=== PATIENT | male | born 1970 | race Caucasian/White ===

== ENCOUNTER 2021-09-23 18:13 | Emergency (ER) | payer OTHER, MEDICAID, SELFPAY ==
--- NOTE | ~2021-09-23 | XR_ITS ---
EXAMINATION: XR chest 1V portable 09/23/2021 18:36 INDICATION: Cough and fever PROCEDURE: AP portable chest COMPARISON: 08/26/2005 FINDINGS: The lungs are clear. The cardiomediastinal silhouette is within normal limits. There are no pleural effusions. There is no pneumothorax suspected. IMPRESSION: 1: NO ACUTE CARDIOPULMONARY DISEASE. Reviewed, dictated and finalized at location A. D [facility]NER
[2021-09-23 18:15] VITALS: BP 133/100; PULSE 89; RESP 18; TEMP 36.9; O2SAT 98
[2021-09-23 18:26] VITALS: BP 126/76; PULSE 91; RESP 18; O2SAT 98
--- NOTE | 2021-09-23 18:29 | ED.URI ---
HPI - URI/Sore Throat General Chief Complaint: Upper Respiratory Infection Stated Complaint: sinus infection Time Seen by Provider: 09/23/21 18:21 Source: patient Mode of arrival: ambulatory Limitations: no limitations History of Present Illness HPI Narrative: This is a 51 year old male that presents to the ER for cold symptoms present over the last couple of weeks. Reports cough, congestion, sinus pain and pressure. Reports low grade fevers. Denies shortness of breath. Related Data Allergies Allergy/AdvReac Type Severity Reaction Status Date / Time No Known Allergies Allergy Mild Verified 06/05/20 12:27 Review of Systems Review of Systems: CONSTITUTIONAL: Denies fever ENT: Reports congestion, sore throat RESPIRATORY: Reports cough. Denies dyspnea. All systems reviewed & are unremarkable except as noted in HPI and below PMFSH Surgical History Surgical History H/O: vasectomy Family History Family History Mother Healthy adult Social History Social History Smoking status: Former smoker Tobacco type: smokeless tobacco Smoking end date: 10/31/99 Alcohol intake: current Substance use: current Substance use type: marijuana Exam Narrative: GENERAL: Well-appearing, well-nourished, and in no acute distress. HEAD: Normocephalic, atraumatic. EYES: EOMI. ENT: Turbinates swollen and pale. Mucous membranes moist. Oropharynx without tonsillar hypertrophy exudate or other lesions. Bilateral TMs pearly aggarwal non-bulging. Frontal sinus tenderness bilaterally NECK: Supple. No adenopathy or masses. CHEST: Clear to auscultation. No respiratory distress. No wheezes rales or rhonchi HEART: Regular rate and rhythm. No murmur heard. Normal peripheral pulses. EXTREMITIES: Normal range of motion. No edema. SKIN: Warm, dry, no rash. NEURO: No focal deficits. Alert and oriented x3. PSYCH: Normal mood and affect Course Vital Signs Vital signs: Vital Signs Temperature 98.5 F 09/23/21 18:15 Pulse Rate 89 09/23/21 18:15 Respiratory Rate 18 09/23/21 18:15 Blood Pressure 133/100 H 09/23/21 18:15 Pulse Oximetry 98 09/23/21 18:15 Temperature 98.5 F 09/23/21 18:15 Pulse Rate 91 09/23/21 18:32 Respiratory Rate 18 09/23/21 18:32 Blood Pressure 126/76 09/23/21 18:32 Pulse Oximetry 98 09/23/21 18:32 MDM - URI/Sore Throat MDM Narrative Medical decision making narrative: Patient presents to the emergency department for sinus pain and congestion ongoing over the last couple of weeks. He is afebrile and nontoxic-appearing. He does have bilateral frontal sinus tenderness. Influenza screen was negative, SARS-CoV-2 was sent. Chest x-ray is clear. Since patient has had ongoing sinus symptoms for weeks without relief patient will be started on oral antibiotics. He is to follow-up with his primary care doctor. He was also instructed that it may be beneficial for him to also see an ENT doctor. There are multiple previous visits to our ED for sinusitis. Patient is stable and felt appropriate for further outpatient evaluation. He was given warnings to return to the ER Lab Data Attestation: I reviewed the patient's lab results. Labs: Lab Results 09/23/21 Range/Units 18:48 SARS-CoV-2 RNA (RT-PCR) Pending Influenza A Screen Negative Reference Range: Negative Influenza B Screen Negative Reference Range: Negative Imaging Data Radiologist's impression: ITS Impressions Chest X-Ray 09/23/21 18:37 IMPRESSION: 1: NO ACUTE CARDIOPULMONARY DISEASE. Critical Care Time Critical Care Time Critical Care Time: No Discharge Plan Discharge Clinical Impression: Acute bacter
[2021-09-23 18:32] VITALS: BP 126/76; PULSE 91; RESP 18; O2SAT 98
[2021-09-23 19:30] VITALS: BP 119/80; PULSE 81; RESP 18; O2SAT 98
[2021-09-23] MEDS: ACETAMINOPHEN 500 MG TABLET 1000 MG PO (19:36)
[2021-09-23] MEDS: KETOROLAC (*BKC) 60 MG/2 ML VIAL IM (19:38)
[2021-09-23 19:57] VITALS: BP 121/83; PULSE 81; RESP 18; O2SAT 98
[2021-09-24 15:23] LABS: SARS-CoV-2 RNA PCR Negative
== END 2021-09-23 19:58 | disposition home or self-care (01) ==
PROVIDERS: Physician Assistant; Emergency Provider Emergency Medicine; PCP Family Medicine
DX: J01.90 Acute sinusitis, unspecified (principal); B96.89 Other specified bacterial agents as the cause of diseases classified elsewhere; Z20.822 Contact with and (suspected) exposure to COVID-19; Z87.891 Personal history of nicotine dependence
CPT/HCPCS: 71045; 87804; 96372; 99283; A9270; C9803; J1885; U0003; U0005

== ENCOUNTER 2024-07-21 14:03 | Emergency (ER) | payer OTHER, SELFPAY ==
[2024-07-21 14:39] VITALS: BP 118/73; PULSE 90; RESP 16; TEMP 36.6; O2SAT 99
--- NOTE | 2024-07-21 15:06 | ED.URI ---
HPI - URI/Sore Throat General Chief Complaint: Upper Respiratory Infection Stated Complaint: Sinus Time Seen by Provider: 07/21/24 15:06 Source: patient, RN notes reviewed and old records reviewed Mode of arrival: ambulatory Limitations: no limitations History of Present Illness HPI Narrative: 53-year-old male presents to the [facility] with sinus congestion since Tuesday or Tuesday, 4-5 days. Denies any other symptoms Related Data Allergies Allergy/AdvReac Type Severity Reaction Status Date / Time No Known Allergies Allergy Mild Verified 07/21/24 14:18 Review of Systems Review of Systems: All systems reviewed & are unremarkable except as noted in HPI and below Constitutional: Constitutional: Reports no additional constitutional complaints Eyes: Eyes: Reports no additional eye complaints ENT: Reports as per HPI Cardiovascular: Cardiovascular: Reports no additional cardiovascular complaints, Denies chest pain and Denies dyspnea Respiratory: Respiratory: Reports no additional respiratory complaints, Denies chest congestion, Denies cough and Denies dyspnea Gastrointestinal: Gastrointestinal: Reports no additional gastrointestinal complaints, Denies abdominal pain, Denies nausea and Denies vomiting Musculoskeletal: Musculoskeletal: Reports no additional musculoskeletal complaints Integumentary/Breasts: Skin/Breast: Reports system reviewed and no additional complaints, except as docu Neurologic: Reports system reviewed and no additional complaints, except as documented Psychiatric: Psychiatric: Reports no additional psychiatric complaints Allergic/Immunologic: Allergic/Immunologic: Reports no additional allergic/immunologic complaints PMFSH Surgical History Surgical History H/O: vasectomy Family History Family History Mother Healthy adult Social History Social History Smoking status: Former smoker Tobacco type: smokeless tobacco Smoking end date: 10/31/99 Alcohol intake: current Substance use: current Substance use type: marijuana Living arrangements: with family Occupation/Education: occupation Comments At the time of my signature, I reviewed and agree with the nursing past medical, surgical, social, and family history. There is no relevant family history pertinent to the patient complaint. Exam Const: General: cooperative, healthy appearing, comfortable, no acute distress, well developed, alert and well nourished Nutritional Appearance: well nourished Orientation/consciousness: patient oriented x3 Limitations: no limitations HENMT: Head: normal to inspection Ears: hearing grossly normal bilaterally, external ears normal, TM's normal bilaterally, EAC's normal, mastoids normal and no periauricular adenopathy Face/Nose/Sinus: Normal external nose present, Normal nares present, Normal nasal mucous membranes and turbinates present, normal facial exam and face symmetric Face and sinus: normal facial exam and face symmetric Mouth: Yes Normal oral and palatal mucosa present, Yes lip normal and Yes tongue normal Throat: posterior oropharynx normal, tonsils normal, uvula midline, postnasal drainage and no uvular edema Eyes: General: appearance normal, both eyes and all related structures Alignment and Position: alignment normal Periorbital: periorbital findings normal Neck: Neck: normal visual inspection, full ROM, no lymphadenopathy and no meningeal signs Chest: Chest palpation & inspection: normal inspection of the chest Resp: Effort & Inspection: normal respiratory effort and able to speak in complete sentences Auscultation: clear to auscultation bilaterally, no crackles, no rales, no rhonchi and no wheezes Cardio: Rate: regular rate Rhythm: regular rhythm Skin: General skin exam: normal color and no rashes or lesions noted L
== END 2024-07-21 15:16 | disposition home or self-care (01) ==
PROVIDERS: Emergency Provider Nurse Practitioner; PCP Family Medicine
DX: R09.82 Postnasal drip (principal); J01.90 Acute sinusitis, unspecified; Z87.891 Personal history of nicotine dependence; Z98.52 Vasectomy status
CPT/HCPCS: 99213; G0463